=== PATIENT | female | born 1980 | race Caucasian/White ===

== ENCOUNTER 2016-04-04 17:26 | Emergency (ER) | payer SELFPAY ==
[2016-04-04 17:40] VITALS: RESP 18
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
[2016-04-04 22:14] VITALS: BP 136/81; PULSE 97; TEMP 98.8
== END 2016-04-04 22:19 | disposition home or self-care (01) ==
LOC: EC 17:26
DX: S05.10XA Contusion of eyeball and orbital tissues, unspecified eye, initial encounter (principal); F43.23 Adjustment disorder with mixed anxiety and depressed mood; F17.200 Nicotine dependence, unspecified, uncomplicated; Z79.899 Other long term (current) drug therapy; Z88.5 Allergy status to narcotic agent; Y09 Assault by unspecified means
CPT/HCPCS: 80306; 82075; 99283